=== PATIENT | male | born 1970 | race Hispanic/Latino ===

== ENCOUNTER 2021-08-04 13:35 | Emergency (ER) | payer OTHER ==
[~2021-08-04] VITALS: Ht 167.6 cm; Wt 77.0 kg
[2021-08-04 13:54] VITALS: BP 162/91
[2021-08-04 14:01] VITALS: BP 140/85
[2021-08-04 14:16] VITALS: BP 139/74
[2021-08-04 14:31] VITALS: BP 153/96
[2021-08-04] MEDS ORDERED: CEFDINIR300 MG PO (14:51)
[2021-08-04 15:09] VITALS: BP 153/96
== END 2021-08-04 15:30 | disposition home or self-care (01) | DRG 605 ==
LOC: ED 13:35
PROC: 0HQFXZZ Repair Right Hand Skin, External Approach (ICD-10-PCS; principal; 2021-08-04)
DX: S61.011A Laceration without foreign body of right thumb without damage to nail, initial encounter (principal); I10 Essential (primary) hypertension; W01.118A Fall on same level from slipping, tripping and stumbling with subsequent striking against other sharp object, initial encounter